=== PATIENT | male | born 1985 | race American Indian/Alaskan Native ===

== ENCOUNTER 2016-10-30 22:55 | Observation (INO) | payer SELFPAY ==
[2016-10-30 22:57] VITALS: BMI 23.7
--- NOTE | 2016-10-30 23:24 | ED PDOC ---
Arrival/HPI - General Chief Complaint: Alcohol Ingestion Time Seen by Provider: 10/30/16 23:19 Historian: Patient - History of Present Illness Narrative History of Present Illness (Text): 10/30/16 23:22 Patient presents with slurring of speech and alcohol on breath. Admits to drinking throughout the day. Pt denies suicidal or homicidal ideations. Patient states that he may have bumped his head. Denies any pain or other trauma or injury. Symptom Onset: Sudden Symptom Course: Unchanged Activities at Onset: Rest Context: Home Past Medical History - Provider Review Nursing Documentation Reviewed: Yes - Infectious Disease Hx of Infectious Diseases: None - Pulmonary Hx Asthma: Yes - Psychiatric Hx Substance Use: No - Anesthesia Hx Anesthesia: No Family/Social History - Physician Review Nursing Documentation Reviewed: Yes Family/Social History: Unknown Family HX Smoking Status: Unknown If Ever Smoked Hx Alcohol Use: Yes Frequency of alcohol use: Socially Hx Substance Use: No Allergies/Home Meds Allergies/Adverse Reactions: Allergies No Known Allergies Allergy (Verified 10/30/16 22:57) Home Medications: Home Meds Medication Instructions Recorded Confirmed Unobtainable 10/30/16 10/30/16 Review of Systems - Review of Systems Systems not reviewed;Unavailable: Intoxicated Physical Exam - Physical Exam Narrative Physical Exam (Text): pt in no distress, no airway compromise, breathing without difficulty, good insp /exp effort. No signs of head/torso/extremity trauma. Following commands without difficulty. Head: Present: Atraumatic, Normocephalic. No: Tenderness, Contusion, Swelling, Ecchymosis, Abrasion, Laceration Pupils: Present: PERRL Extroacular Muscles: Present: EOMI Conjunctiva: Present: Normal Mouth: Present: Moist Mucous Membranes Neck: Present: Normal Range of Motion. No: MIDLINE TENDERNESS, Paraspinal Tenderness Respiratory/Chest: Present: Clear to Auscultation, Good Air Exchange. No: Respiratory Distress, Accessory Muscle Use Cardiovascular: Present: Regular Rate and Rhythm, Normal S1, S2. No: Murmurs Abdomen: Present: Normal Bowel Sounds. No: Tenderness, Distention, Peritoneal Signs, Rebound, Guarding Back: Present: Normal Inspection. No: Midline Tenderness, Paraspinal Tenderness Upper Extremity: Present: Normal Inspection. No: Cyanosis, Edema Lower Extremity: Present: Normal Inspection. No: Edema Neurological: Present: GCS=15, CN II-XII Intact Skin: Present: Warm, Dry, Normal Color. No: Rashes Lymphatic: Present: OX3, NI, NC Psychiatric: Present: Alert. No: Agitated Vital Signs Temp Pulse Resp BP Pulse Ox 10/31/16 05:12 97.9 F 78 14 114/60 98 10/30/16 22:57 70 F L 67 20 131/65 98 Finger Stick Blood Glucose: 116 Medical Decision Making ED Course and Treatment: 10/30/16 23:36 Impression: A 31 year old male with intoxication. Plan: -- CT head w/o contrast -- Reassess and disposition - Lab Interpretations Lab Results: Lab Results 10/30/16 23:10: POC Glucose (mg/dL) 116 H ED OBSERVATION Discharge: Yes Date of observation admission: 10/30/16 Time of observation admission: 23:24 - Observation admission statement Patient is being placed in observation because:: alcohol intoxication - Goals of Observation Goals of observation are:: pending sobriety, monitoring - Progress Note Progress Note: CT Head Without Intravenous Contrast FINDINGS: Brain: Unremarkable. No hemorrhage. No significant white matter disease. No edema. Ventricles: Unremarkable. No ventriculomegaly. Bones/joints: Unremarkable. No acute fracture. Soft tissues: Suggestion of extracranial soft tissue swelling in the right frontal region, series 5 image 35. Sinuses: Unremarkable as visualized. No acute sinusitis. Mastoid air cells: Unremarkable as visualized. No mastoid effusion. Other findings: This study was protocoled on site and performed as per site directions, the images were subsequently sent for review by radiology. Suggestion of unerupted teeth. IMPRESSION: No hemorrhage, no fracture , no mass effect or midline shift. Dental evaluation suggested noting appearance of some unerupted teeth. Dictated and Authenticated by: Roya Elise MD 10/31/2016 1:54 AM Eastern Time ([place] & [place]) 10/31/16 01:24 Patient is in no acute distress. 10/31/16 03:24 Patient resting comfortably. 10/31/16 05:19 Pt has been closely monitored throughout the stay in the ED. Currently pt is ANOx3 to person, place, and time. Has good insight and judgment. Denies suicidal or homicidal ideations. Pt has steady gait, ambulates without difficulty, not slurring speech. Pt able to tolerate PO without any difficulty. Patient denies any complaints at this time. Patient is not tremulous, not tachycardic, no signs or symptoms of alcohol withdrawal. Pt states he understands to return to the ER right away for new or worsening symptoms or for inability to f/u with PMD or specialist as instructed. Patient states that he fully agrees with and understands discharge instructions. States that he agrees with the plan and disposition. Verbalized and repeated discharge instructions and plan. I have given the patient opportunity to ask any additional questions. - Scribe Statement The provider has reviewed the documentation as recorded by the Scribjarret Stokes All medical record entries made by the Neeruibjarret were at my direction and personally dictated by me. I have reviewed the chart and agree that the record accurately reflects my personal performance of the history, physical exam, medical decision making, and the department course for this patient. I have also personally directed, reviewed, and agree with the discharge instructions and disposition. Disposition/Present on Arrival - Present on Arrival Any Indicators Present on Arrival: No History of DVT/PE: No History of Uncontrolled Diabetes: No Urinary Catheter: No History of Decub. Ulcer: No History Surgical Site Infection Following: None - Disposition Have Diagnosis and Disposition been Completed?: Yes Diagnosis: Alcohol intoxication Disposition: HOME/ ROUTINE Disposition Time: 23:23 Patient Plan: Observation Condition: GOOD
--- NOTE | 2016-10-31 01:54 | CT ---
EXAM: CT Head Without Intravenous Contrast CLINICAL HISTORY: 31 years old, male; Pain; Headache; Additional info: Fall TECHNIQUE: Axial computed tomography images of the head/brain without intravenous contrast. This CT exam was performed using one or more of the following dose reduction techniques: automated exposure control, adjustment of the mA and/or kV according to patient size, and/or use of iterative reconstruction technique. EXAM DATE/TIME: Exam ordered 10/30/2016 11:23 PM COMPARISON: No relevant prior studies available. FINDINGS: Brain: Unremarkable. No hemorrhage. No significant white matter disease. No edema. Ventricles: Unremarkable. No ventriculomegaly. Bones/joints: Unremarkable. No acute fracture. Soft tissues: Suggestion of extracranial soft tissue swelling in the right frontal region, series 5 image 35. Sinuses: Unremarkable as visualized. No acute sinusitis. Mastoid air cells: Unremarkable as visualized. No mastoid effusion. Other findings: This study was protocoled on site and performed as per site directions, the images were subsequently sent for review by radiology. Suggestion of unerupted teeth. IMPRESSION: No hemorrhage, no fracture , no mass effect or midline shift. Dental evaluation suggested noting appearance of some unerupted teeth.
[2016-10-31 03:11] VITALS: O2SAT 98
[2016-10-31 05:14] VITALS: BP 114/60; PULSE 78; RESP 14
[2016-10-31 05:16] VITALS: TEMP 97.9
== END 2016-10-31 05:21 | disposition home or self-care (01) ==
LOC: ED 22:55 → EROBSV 23:19 → MERGE 23:19
PROVIDERS: ADMIT Emergency Medicine; ATTEND Emergency Medicine
DX: F10.129 Alcohol abuse with intoxication, unspecified (principal); Y90.9 Presence of alcohol in blood, level not specified
CPT/HCPCS: 70450; 82948; 99282; G0378